=== PATIENT | female | born 1970 | race American Indian/Alaskan Native ===

== ENCOUNTER 2019-09-23 14:24 | Emergency (ER) | payer OTHER ==
--- NOTE | 2019-09-23 17:04 | XRay Report ---
CERVICAL SPINE 3 VIEWS INDICATION / CLINICAL INFORMATION: cervical pain and tenderness. COMPARISON: None available. FINDINGS: Transverse processes of C7 are quite prominent ("cervical ribs"). Minimal degenerative change. No fra cture or subluxation. Signer Name: Vladimir Corcoran MD Signed: 09/23/2019 5:00 PM Workstation Name: [id number]
--- NOTE | 2019-09-23 17:05 | XRay Report ---
LUMBAR SPINE 2 VIEWS INDICATION / CLINICAL INFORMATION: Vertebra pain and tenderness COMPARISON: None available. FINDINGS: BONES / JOINT(S): No acute fracture or subluxation. Mild degenerative disc disease is scattered throu ghout the lumbar spine. SOFT TISSUES: No significant abnormality. ADDITIONAL FINDINGS: None. Signer Name: Israel Delgadillo MD Signed: 09/23/2019 5:00 PM Workstation Name: [email or web address]
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
[2019-09-23] MEDS ORDERED: IBUPROFEN 600 MG TAB PO ONE (20:08)
[2019-09-23] MEDS ORDERED: ACETAMINOPHEN 500 MG TAB PO ONE (20:08)
[2019-09-23] MEDS ORDERED: CYCLOBENZAPRINE 10 MG TAB PO ONE (20:08)
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
[2019-09-23 20:32] VITALS: BP 147/89
== END 2019-09-23 20:33 | disposition home or self-care (01) ==
LOC: ED 14:24
DX: S13.4XXA Sprain of ligaments of cervical spine, initial encounter (principal); S39.92XA Unspecified injury of lower back, initial encounter; I10 Essential (primary) hypertension; E11.9 Type 2 diabetes mellitus without complications; Z90.49 Acquired absence of other specified parts of digestive tract; Z79.899 Other long term (current) drug therapy; Z91.040 Latex allergy status; V49.59XA Passenger injured in collision with other motor vehicles in traffic accident, initial encounter; Y93.89 Activity, other specified; Y92.410 Unspecified street and highway as the place of occurrence of the external cause; Y99.8 Other external cause status
CPT/HCPCS: 72040; 72100